=== PATIENT | female | born 1985 | race Caucasian/White ===

== ENCOUNTER 2017-06-20 17:08 | Emergency (ER) | payer OTHER ==
[2017-06-20 17:14] VITALS: BMI 27.1
--- NOTE | 2017-06-20 17:32 | PDOC ---
History of Present Illness - General History Source: Family Exam Limitations: No Limitations - History of Present Illness Initial Comments: 06/20/17 18:11 The patient is a 32 year old female with past medical history of MONO (2003) presents to the emergency department with swollen glands and high fever for the past 2 days. The patient reports going to Dr. Tanner prior to ed, who recommended her to come in. Associated symptoms of chills and sweating, no relief w/ Tylenol. The patient reports mild lower back pain but she states it can be due to having her menstrual cycle over the weekend. The patient reports in Mar 2017 she travel out of country, w/ all travel immunization up to date. The patient denies any rhinorrhea, sore throat, cough, SOB, chest pain, or no new rashes. Denies any recent trauma or sick contacts. The patient denies any change to her voice. Allergies: cefaclor and penicillin PCP: Dr. Jairo Ward MD. Social history: No history of smoking. Use alcohol 3x/week and no history of recreational drugs. <Bela Bullock - Last Filed: 06/20/17 20:35> <Anika Ramey - Last Filed: 06/24/17 19:42> - General Stated Complaint: CHILLS, DIZZY, HEADACHE, "SWOLLEN GLANDS" Time Seen by Provider: 06/20/17 17:15 Past History <Bela Bullock - Last Filed: 06/20/17 20:35> - Past Medical History COPD: No - Suicide/Smoking/Psychosocial Hx Smoking History: Never smoked Have you smoked in the past 12 months: No Hx Alcohol Use: (3x/week) <Anika Ramey - Last Filed: 06/24/17 19:42> - Past Medical History Allergies/Adverse Reactions: Allergies Allergy/AdvReac Type Severity Reaction Status Date / Time cefaclor [From [facility]] Allergy Verified 06/21/17 16:52 Penicillins Allergy Verified 06/21/17 16:52 vancomycin Allergy Verified 06/21/17 20:26 Home Medications: Ambulatory Orders NK [No Known Home Medication] 06/20/17 Review of Systems - Review of Systems Able to Perform ROS?: Yes Comments:: 06/20/17 18:12 GENERAL/CONSTITUTIONAL: (+) fever, sweating and chills. No weakness. HEAD, EYES, EARS, NOSE AND THROAT: No change in vision. No ear pain or discharge. No sore throat. CARDIOVASCULAR: No chest pain or shortness of breath. RESPIRATORY: No cough, wheezing, or hemoptysis. GASTROINTESTINAL: No nausea, vomiting, diarrhea or constipation. GENITOURINARY: No dysuria, frequency, or change in urination. MUSCULOSKELETAL: No joint or muscle swelling or pain. No neck or back pain. SKIN: No rash NEUROLOGIC: No headache, vertigo, loss of consciousness, or change in strength/ sensation. ENDOCRINE: No increased thirst. No abnormal weight change. HEMATOLOGIC/LYMPHATIC: (+) Swollen glands. No anemia, easy bleeding, or history of blood clots. ALLERGIC/IMMUNOLOGIC: No hives or skin allergy. <Bela Bullock - Last Filed: 06/20/17 20:35> *Physical Exam - Vital Signs Last Vital Signs Temp Pulse Resp BP Pulse Ox 102.4 F H 98 H 18 108/70 99 06/20/17 17:08 06/20/17 17:08 06/20/17 17:08 06/20/17 17:08 06/20/17 17:08 <Bela Bullock - Last Filed: 06/20/17 20:35> - Vital Signs Last Vital Signs Temp Pulse Resp BP Pulse Ox 102.4 F H 98 H 18 108/70 99 06/20/17 17:08 06/20/17 17:08 06/20/17 17:08 06/20/17 17:08 06/20/17 17:08 - Physical Exam Comments: GENERAL: Awake, alert, and fully oriented, in no acute distress HEAD: No signs of trauma EYES: PERRLA, EOMI, sclera anicteric, conjunctiva clear ENT: Auricles normal inspection, hearing grossly normal, nares patent, oropharynx clear without exudates and without erythema. Moist mucosa NECK: Normal ROM, supple. No JVD or masses. +Anterior and posterior cervical LAD. No meningismus. LUNGS: Breath sounds equal, clear to auscultation bilaterally. No wheezes, and no crackles HEART: Regular rate and rhythm, normal S1 and S2, no murmurs, rubs or gallops ABDOMEN: Soft, nontender, normoactive bowel sounds. No guarding, no rebound. No masses EXTREMITIES: Normal range of motion, no edema. No clubbing or cyanosis. No cords, erythema, or tenderness. No axillary or supraclavicular nodes. NEUROLOGICAL: Cranial nerves II through XII grossly intact. Normal speech, normal gait. Normal phonation. Motor and sensation intact. SKIN: Warm, Dry, normal turgor, no rashes or lesions noted. <Anika Ramey - Last Filed: 06/24/17 19:42> ED Treatment Course - LABORATORY CBC & Chemistry Diagram: 06/20/17 17:45 06/20/17 17:45 - ADDITIONAL ORDERS Additional order review: Laboratory Results 06/20/17 17:25 Urine Color Yellow Urine Appearance Clear Urine pH 5.5 Ur Specific [place] 1.020 Urine Protein Negative Urine Glucose (UA) Negative Urine Ketones 2+ H Urine Blood 2+ H Urine Nitrite Negative Urine Bilirubin Negative Urine Urobilinogen 0.2 Ur Leukocyte Esterase Negative - Medications Given in the ED: ED Medications Discontinued Medications Generic Name Dose Route Start Last Admin Trade Name Freq PRN Reason Stop Dose Admin Acetaminophen 650 mg 06/20/17 17:45 06/20/17 17:50 Tylenol - PO 06/20/17 17:46 650 mg ONCE ONE Administration <Bela uBllock - Last Filed: 06/20/17 20:35> - LABORATORY CBC & Chemistry Diagram: 06/20/17 17:45 06/20/17 17:45 <Anika Ramey - Last Filed: 06/24/17 19:42> Medical Decision Making - Medical Decision Making 06/20/17 19:[address] Kenny at shift change. Awaiting labs, UA and CXR to evaluate fever with lymphadenopathy. No signs of meningitis. Patient is well-appearing. Differential dx includes febrile illness (viral), UTI, pna. Awaiting labs to r/ o leukocytosis. <Anika Ramey - Last Filed: 06/24/17 19:42> *DC/Admit/Observation/Transfer - Attestations Scribe Attestion: 06/20/17 18:13 Documentation prepared by Bela Bullock, acting as medical instrument cable fabricator for Anika Ramey MD. <Bela Bullock - Last Filed: 06/20/17 20:35> <Anika Ramey - Last Filed: 06/24/17 19:42> Diagnosis at time of Disposition: Cervical lymphadenopathy Fever Qualifiers: Fever type: unspecified Qualified Code(s): R50.9 - Fever, unspecified - Discharge Dispostion Disposition: HOME Condition at time of disposition: Stable - Referrals Referrals: Mayi Tanner MD [Provisional Medical Staff] - - Patient Instructions Printed Discharge Instructions: DI for Viral Syndrome Additional Instructions: Rest; drink plenty fluids Acetaminophen and/or ibuprofen as needed for fever No work tomorrow Return to ER or see Dr Tanner if you have persistent high fever/ persistent swollen glands Follow-up with Dr. Tanner within 1 week - Post Discharge Activity
[2017-06-20 17:37] LABS: PH,URINE 5.5 (4.5-8); URINE APPEARANCE Clear; URINE BILIRUBIN Negative (NEGATIVE); URINE GLUCOSE (UA) Negative (NEGATIVE); URINE KETONE 2+ (NEGATIVE); URINE LEUK ESTERASE Negative (NEGATIVE); URINE NITRITE Negative (NEGATIVE); URINE PROTEIN Negative (NEGATIVE); URINE UROBILINOGEN 0.2 (0.2-1.0)
[2017-06-20 17:39] LABS: URINE COLOR YELLOW
[2017-06-20] MEDS ORDERED: ACETAMINOPHEN 325 MG TABLET (FP) PO ONE (17:45)
[2017-06-20] MEDS ORDERED: ACETAMINOPHEN 325 MG TABLET (FP) ONE (17:54)
[2017-06-20 18:19] LABS: WHITE BLOOD COUNT 3.4 K/mm3 (4.0-10.8)
[2017-06-20 18:23] LABS: ALBUMIN 3.6 g/dl (3.5-5.0); ALK PHOS 74 U/L (32-92); ANION GAP 7 (8-16); BLOOD UREA NITROGEN 15 mg/dl (7-18); CALCIUM 7.8 mg/dl (8.4-10.2); CHLORIDE 102 mmol/L (98-107); CO2 24 mmol/L (22-28); CREATININE 0.9 mg/dl (0.6-1.3); GLUCOSE,RANDOM 105 mg/dl (74-106); POTASSIUM 3.7 mmol/L (3.5-5.1); SGOT/AST 29 U/L (10-42); SGPT/ALT 32 U/L (10-40); SODIUM 133 mmol/L (136-145); TOT PROT 6.7 g/dl (6.4-8.3)
[2017-06-20 18:26] LABS: EPI CELLS FEW /HPF; URINE BACTERIA FEW /hpf (NEGATIVE)
[2017-06-20 18:33] LABS: BILIRUBIN,TOTAL < 0.5 mg/dl (0.2-1.0)
[2017-06-20 18:44] LABS: BASO % 0.4 % (0-2.0); EOS % 6.8 % (0-4.5); HEMATOCRIT 35.2 % (32.4-45.2); HEMOGLOBIN 11.5 GM/dl (10.7-15.3); LYMPH % 14.3 % (8-40); MCH 26.8 pg (25.7-33.7); MCHC 32.7 g/dl (32.0-36.0); MEAN CELL VOLUME 81.9 fl (80-96); MEAN PLT VOLUME 7.8 fl (7.5-11.1); MONO % 9.9 % (3.8-10.2); NEUT % 68.6 % (42.8-82.8); PLATELET COUNT 164 K/MM3 (134-434); RDW 14.3 % (11.6-15.6)
--- NOTE | 2017-06-20 19:34 | PDOC ---
*Physical Exam - Vital Signs Last Vital Signs Temp Pulse Resp BP Pulse Ox 102.4 F H 98 H 18 108/70 99 06/20/17 17:08 06/20/17 17:08 06/20/17 17:08 06/20/17 17:08 06/20/17 17:08 ED Treatment Course - LABORATORY CBC & Chemistry Diagram: 06/20/17 17:45 06/20/17 17:45 - ADDITIONAL ORDERS Additional order review: Laboratory Results 06/20/17 06/20/17 06/20/17 19:20 17:45 17:25 Sodium 133 L Potassium 3.7 Chloride 102 Carbon Dioxide 24 Anion Gap 7 L BUN 15 Creatinine 0.9 Creat Clearance w eGFR > 60 Random Glucose 105 Calcium 7.8 L Total Bilirubin < 0.5 AST 29 ALT 32 Alkaline Phosphatase 74 Total Protein 6.7 Albumin 3.6 Urine Color Yellow Urine Appearance Clear Urine pH 5.5 Ur Specific [place] 1.020 Urine Protein Negative Urine Glucose (UA) Negative Urine Ketones 2+ H Urine Blood 2+ H Urine Nitrite Negative Urine Bilirubin Negative Urine Urobilinogen 0.2 Ur Leukocyte Esterase Negative Urine RBC 5-10 Urine WBC 2-5 Ur Epithelial Cells Few Urine Bacteria Few Urine HCG, Qual Negative 06/20/17 17:45 RBC 4.30 MCV 81.9 MCHC 32.7 RDW 14.3 MPV 7.8 Neutrophils % 68.6 Lymphocytes % 14.3 Monocytes % 9.9 Eosinophils % 6.8 H Basophils % 0.4 - RADIOLOGY Radiology Studies Ordered: Category Date Time Status CHEST PA & LAT [RAD] Stat Radiology 06/20/17 19:33 Ordered - Medications Given in the ED: ED Medications Discontinued Medications Generic Name Dose Route Start Last Admin Trade Name Freq PRN Reason Stop Dose Admin Acetaminophen 650 mg 06/20/17 17:45 06/20/17 17:50 Tylenol - PO 06/20/17 17:46 650 mg ONCE ONE Administration Progress Note - Progress Note Progress Note: Care of this patient received from Dr. Ramey. Influenza rapid test negative. EB virus serology pending. PGU negative: Chest x-ray performed. No evidence of acute infiltrate/effusion/ masses/mediastinal abnormality seen on chest x-ray Results discussed with the patient and her parents. Patient will be discharged with preliminary diagnosis of viral syndrome. She should rest and drink plenty of fluids. Acetaminophen/ibuprofen can be used for fever as needed. She should return to Dr. Tanner if she has persistent fever or swollen lymph nodes. She also can return to the emergency room if she has severe symptoms. *DC/Admit/Observation/Transfer Diagnosis at time of Disposition: Cervical lymphadenopathy Fever Qualifiers: Fever type: unspecified Qualified Code(s): R50.9 - Fever, unspecified - Discharge Dispostion Disposition: HOME Condition at time of disposition: Stable - Referrals Referrals: Mayi Tanner MD [Provisional Medical Staff] - - Patient Instructions Printed Discharge Instructions: DI for Viral Syndrome Additional Instructions: Rest; drink plenty fluids Acetaminophen and/or ibuprofen as needed for fever No work tomorrow Return to ER or see Dr Tanner if you have persistent high fever/ persistent swollen glands Follow-up with Dr. Tanner within 1 week - Post Discharge Activity
[2017-06-20 20:24] VITALS: BP 109/68; PULSE 86; TEMP 99
--- NOTE | 2017-06-21 16:15 | PDOC ---
*Physical Exam - Vital Signs Last Vital Signs Temp Pulse Resp BP Pulse Ox 99 F 86 16 109/68 99 06/20/17 20:23 06/20/17 20:23 06/20/17 20:23 06/20/17 20:23 06/20/17 20:23 ED Treatment Course - LABORATORY CBC & Chemistry Diagram: 06/20/17 17:45 06/20/17 17:45 - ADDITIONAL ORDERS Additional order review: 06/20/17 17:45 Blood Culture - Preliminary Blood - Peripheral Venous Pending Organism 06/20/17 18:00 Blood Culture - Preliminary Blood - Peripheral Venous Pending Organism 06/20/17 17:45 Influenza Types A,B Antigen (OIB) - Final Nasopharyngeal Swab - Final 06/20/17 17:45 RBC 4.30 MCV 81.9 MCHC 32.7 RDW 14.3 MPV 7.8 Neutrophils % 68.6 Lymphocytes % 14.3 Monocytes % 9.9 Eosinophils % 6.8 H Basophils % 0.4 - Medications Given in the ED: ED Medications Discontinued Medications Generic Name Dose Route Start Last Admin Trade Name Raheem PRN Reason Stop Dose Admin Acetaminophen 650 mg 06/20/17 17:45 06/20/17 17:50 Tylenol - PO 06/20/17 17:46 650 mg ONCE ONE Administration Medical Decision Making - Medical Decision Making 06/21/17 16:13 We received a call from the lab regarding this patient's blood culures Call placed to Dr Tanner, requests that we add Monospot Call placed to patient's number in the chart - [phone] Spoke with pt mother - Peri Lewis She will contact patient I have requested that they come back to the ER immediately 06/21/17 16:15 *DC/Admit/Observation/Transfer Diagnosis at time of Disposition: Cervical lymphadenopathy Fever Qualifiers: Fever type: unspecified Qualified Code(s): R50.9 - Fever, unspecified - Discharge Dispostion Disposition: HOME Condition at time of disposition: Stable - Referrals Referrals: Mayi Tanner MD [Provisional Medical Staff] - - Patient Instructions Printed Discharge Instructions: DI for Viral Syndrome Additional Instructions: Rest; drink plenty fluids Acetaminophen and/or ibuprofen as needed for fever No work tomorrow Return to ER or see Dr Tanner if you have persistent high fever/ persistent swollen glands Follow-up with Dr. Tanner within 1 week - Post Discharge Activity
[2017-06-22 16:41] LABS: EPSTEIN BARR ANTIBODY IgM <36.0 U/mL (0.0-35.9)
== END 2017-06-20 20:48 | disposition home or self-care (01) ==
LOC: FER 17:08
DX: R59.0 Localized enlarged lymph nodes (principal); R50.9 Fever, unspecified; Z88.0 Allergy status to penicillin
CPT/HCPCS: 36415; 71046-TC-FY; 80053; 81003; 81015; 84703; 85025; 86665; 87040; 87086; 87186; 87804; 99284-25